=== PATIENT | male | born 1960 | race Two or more races ===

== ENCOUNTER 2022-10-09 06:51 | Emergency (ER) | payer OTHER ==
[~2022-10-09] VITALS: Ht 170.2 cm; Wt 83.7 kg
[2022-10-09 07:47] VITALS: BP 143/81
[2022-10-09] MEDS ORDERED: TETANUS-DIPTH-ACEL PERTUSSIS 0.5ML SYR Tdap IM ONE (08:00)
[2022-10-09] MEDS ORDERED: CEPH-510 PO (08:35)
== END 2022-10-09 08:40 | disposition home or self-care (01) ==
LOC: ER 06:51
DX: S61.412A Laceration without foreign body of left hand, initial encounter (principal); W26.8XXA Contact with other sharp object(s), not elsewhere classified, initial encounter; Y93.89 Activity, other specified; Y92.89 Other specified places as the place of occurrence of the external cause; Y99.8 Other external cause status
CPT/HCPCS: 12002; 71046; 73130; 90471; 90715

== ENCOUNTER 2022-10-20 10:07 | Emergency (ER) | payer OTHER ==
[~2022-10-20] VITALS: Ht 170.2 cm; Wt 85.5 kg
[~2022-10-20 10:07] MED LIST: CEPH-510 PO
[2022-10-20 10:27] VITALS: BP 136/75
== END 2022-10-20 10:40 | disposition home or self-care (01) ==
LOC: ER 10:07
DX: S61.412D Laceration without foreign body of left hand, subsequent encounter (principal); Z79.899 Other long term (current) drug therapy; X58.XXXD Exposure to other specified factors, subsequent encounter